=== PATIENT | female | born 1940 | race Caucasian/White ===

== ENCOUNTER 2019-12-16 06:17 | Day surgery (SDC) | payer OTHER ==
[~2019-12-16] VITALS: Ht 157.5 cm; Wt 59.1 kg
[~2019-12-16 06:17] MED LIST: ALBU8HFA IH; AMLO-257 PO; ATOR40TA28 PO; CALC-1038 PO; CARV25 PO; CHOL125C2 PO; FAMO20 PO; MONT-35 PO; PRED5 PO; VALS160T2 PO
[2019-12-16] MEDS ORDERED: SODIUM CHLORIDE 0.9% 1,000 ML ONE (06:24)
[2019-12-16] MEDS ORDERED: SODIUM CHLORIDE 0.9% 1,000 ML IV ONE (06:30)
[2019-12-16] MEDS ORDERED: FentaNYL CITRATE-PF 100 MCG/2 ML VIAL ONE (07:56)
[2019-12-16] MEDS ORDERED: MIDAZOLAM HCL 2 MG/2 ML VIAL ONE (07:56)
[2019-12-16] MEDS ORDERED: MethylPREDNISolone SOD SUCC 125 MG/2 ML VIAL IVP ONE (09:00)
[2019-12-16] MEDS ORDERED: MethylPREDNISolone SOD SUCC 125 MG/2 ML VIAL ONE (09:38)
[2019-12-16] MEDS ORDERED: OXYGEN THERAPY IH SCH (20:00)
== END 2019-12-16 10:30 | disposition home or self-care (01) ==
LOC: SURGERY 06:17
PROVIDERS: ATTEND Internal Medicine Critical Care Medicine
DX: J38.4 Edema of larynx (principal); B37.0 Candidal stomatitis; E78.00 Pure hypercholesterolemia, unspecified; Z90.710 Acquired absence of both cervix and uterus; Z79.899 Other long term (current) drug therapy
CPT/HCPCS: 31623; 31624; 71045; 87015; 87070; 87077; 87101; 87186; 87205; 87206; 87220; 87426; 88108; 88312; J2250; J2930; J3010; J7030

== ENCOUNTER → 2021-07-30 | Day surgery (SDC) | payer OTHER ==
[~2021-07-30] VITALS: Ht 157.5 cm; Wt 59.1 kg
[~2021-07-30] MED LIST changes: +ALBUTEROL SULFATE 2.5 MG/0.5 ML NEB SOLUTION NEB ONE; +BENZOCAINE 20% 50 MCG/SPRAY 57 GM TP ONE; -CHOL125C2 PO; +CHOL500013 PO; +FentaNYL CITRATE PF 100 MCG/2 ML VIAL ONE; +LIDOCAINE 2% 30 ML JELLY TP ONE; +LIDOCAINE 4% 50 ML SOLUTION TP ONE; +MIDAZOLAM HCL 5 MG/ML VIAL ONE; +MethylPREDNISolone SOD SUCC 125 MG/2 ML VIAL IVP ONE; +PRED-549 PO; -PRED5 PO; +SODIUM CHLORIDE 0.9% 1,000 ML IV ONE; +SODIUM CHLORIDE 0.9% 1,000 ML ONE
[2021-07-30 06:12] LABS: COVID AG,FIA SOURCE NASAL SWAB
== END | disposition still patient (30) ==
LOC: SURGERY 05:13
PROVIDERS: ATTEND Internal Medicine Critical Care Medicine
DX: J38.4 Edema of larynx (principal); B37.0 Candidal stomatitis; Z79.01 Long term (current) use of anticoagulants; R84.6 Abnormal cytological findings in specimens from respiratory organs and thorax; Z79.899 Other long term (current) drug therapy; Z98.890 Other specified postprocedural states
CPT/HCPCS: 31623; 31624; 71045; 87015; 87070; 87101; 87206; 87220; 87426; 88112; 88184; 88185; 88305; 88312; C9803; J2250; J2930; J3010; J7030; J7613; Z7610

== ENCOUNTER 2022-08-08 06:29 | Day surgery (SDC) | payer OTHER ==
[~2022-08-08] VITALS: Ht 160 cm; Wt 58.0 kg
[~2022-08-08 06:29] MED LIST changes: +ALBU18HF12 IH; -ALBU8HFA IH; -ALBUTEROL SULFATE 2.5 MG/0.5 ML NEB SOLUTION NEB ONE; -BENZOCAINE 20% 50 MCG/SPRAY 57 GM TP ONE; -FentaNYL CITRATE PF 100 MCG/2 ML VIAL ONE; -LIDOCAINE 2% 30 ML JELLY TP ONE; -LIDOCAINE 4% 50 ML SOLUTION TP ONE; -MIDAZOLAM HCL 5 MG/ML VIAL ONE; -MethylPREDNISolone SOD SUCC 125 MG/2 ML VIAL IVP ONE; -SODIUM CHLORIDE 0.9% 1,000 ML IV ONE; -SODIUM CHLORIDE 0.9% 1,000 ML ONE
[2022-08-08] MEDS ORDERED: LIDOCAINE 2% 11 ML JELLY TP ONE ×2 (06:30)
[2022-08-08] MEDS ORDERED: BENZOCAINE 20% 50 MCG/SPRAY 57 GM TP ONE ×2 (06:30)
[2022-08-08] MEDS ORDERED: ALBUTEROL SULFATE 2.5 MG/0.5 ML NEB SOLUTION NEB ONE (06:30)
[2022-08-08] MEDS ORDERED: LIDOCAINE 4% 50 ML SOLUTION TP ONE ×2 (06:30)
[2022-08-08] MEDS ORDERED: SODIUM CHLORIDE 0.9% 1,000 ML IV ONE (07:00)
[2022-08-08] MEDS ORDERED: CARV12 PO (07:41)
[2022-08-08] MEDS ORDERED: IRBE150T51 PO (07:41)
[2022-08-08] MEDS ORDERED: ASCO500 PO (07:41)
[2022-08-08] MEDS ORDERED: SODIUM CHLORIDE 0.9% 1,000 ML ONE (07:49)
[2022-08-08] MEDS ORDERED: FentaNYL CITRATE PF 100 MCG/2 ML VIAL ONE (08:09)
[2022-08-08] MEDS ORDERED: MIDAZOLAM HCL 2 MG/2 ML VIAL ONE (08:09)
[2022-08-08] MEDS ORDERED: MethylPREDNISolone SOD SUCC 125 MG/2 ML VIAL ONE (09:07)
[2022-08-08] MEDS ORDERED: MethylPREDNISolone SOD SUCC 125 MG/2 ML VIAL IVP ONE (09:30)
== END 2022-08-08 11:30 | disposition home or self-care (01) ==
LOC: SURGERY 06:29
PROVIDERS: ATTEND Internal Medicine Critical Care Medicine
DX: J38.4 Edema of larynx (principal); B37.0 Candidal stomatitis; I10 Essential (primary) hypertension; Z98.890 Other specified postprocedural states; E78.00 Pure hypercholesterolemia, unspecified; Z79.899 Other long term (current) drug therapy
CPT/HCPCS: 31623; 88112; 87206; 87101; 87220; 87070; 87186; 31624; 71045; 87015; J3010; J2250; J2930; Q9967; J7030; J7613; Z7610